=== PATIENT | female | born 1970 | race Caucasian/White ===

== ENCOUNTER 2018-01-26 09:41 | Emergency (ER) | payer MEDICAID ==
[~2018-01-26] VITALS: Ht 152.4 cm; Wt 89.3 kg
[2018-01-26 13:50] VITALS: BP 129/86
== END 2018-01-26 13:50 | disposition short-term general hospital (02) ==
LOC: ED 09:41
DX: S52.122A Displaced fracture of head of left radius, initial encounter for closed fracture (principal); W11.XXXA Fall on and from ladder, initial encounter; Y93.89 Activity, other specified; Y92.89 Other specified places as the place of occurrence of the external cause; Y99.8 Other external cause status
CPT/HCPCS: J2270; J3490; Q0092